=== PATIENT | male | born 1990 | race Caucasian/White ===

== ENCOUNTER 2019-10-10 15:46 | Emergency (ER) | payer SELFPAY ==
[~2019-10-10] VITALS: Ht 177.8 cm; Wt 176.0 kg
[~2019-10-10 15:46] MED LIST: AMLO10TA4 PO; LISI40TA4 PO
[2019-10-10 20:06] VITALS: BP 166/94
[2019-10-10] MEDS ORDERED: SODIUM CHLORIDE 0.9% 1,000 ML IV ONE (20:27)
[2019-10-10] MEDS ORDERED: FAMOTIDINE 20MG/2ML VIAL IV STA (20:27)
[2019-10-10] MEDS ORDERED: ONDANSETRON HCL 4MG/2ML INJ IV STA (20:27)
[2019-10-10] MEDS ORDERED: DICYCLOMINE HCL 10MG/ML 2ML AMP IM ONE (20:30)
[2019-10-10 20:51] LABS: BASOPHILS % 0.7 % (0.0-2.0); EOSINOPHILS % 0.9 % (0.0-5.0); HEMATOCRIT. 46.6 % (42.0-52.0); HEMOGLOBIN. 15.7 g/dL (14.0-18.0); LYMPHOCYTES % 15.3 % (20.0-50.0); MEAN CORPUSCULAR HEMOGLOBIN 26.8 pg (28.0-32.0); MEAN CORPUSCULAR VOLUME 79.6 fL (80.0-94.0); MEAN PLATELET VOLUME 9.3 fl (7.4-10.4); MONOCYTES % 6.9 % (2.0-8.0); NEUTROPHILS % 76.2 % (40.0-76.0); PLATELET 168 x1000/uL (130-400); RED BLOOD CELL COUNT 5.85 mill/uL (4.7-6.1); RED CELL DISTRIBUTION WIDTH 13.3 % (11.6-14.6)
[2019-10-10 20:55] LABS: CHLORIDE 104 mEq/L (98-107)
[2019-10-10] MEDS ORDERED: METOCLOPRAMIDE HCL 10MG/2ML VIAL IV ONE (21:45)
== END 2019-10-10 22:39 | disposition left against medical advice (07) ==
LOC: ER 15:46
DX: R11.2 Nausea with vomiting, unspecified (principal); R19.7 Diarrhea, unspecified; R10.13 Epigastric pain; I10 Essential (primary) hypertension; Z90.49 Acquired absence of other specified parts of digestive tract
CPT/HCPCS: 36415; 80053; 83690; 85025; 93005; 96361; 96372; 96374; 96375; 99284; J0500; J2405; J2765; J3490; J7030; Z7610